=== PATIENT | male | born 1955 | race Hispanic/Latino ===

== ENCOUNTER 2023-11-21 11:04 | Emergency (ER) | payer OTHER ==
[~2023-11-21] VITALS: Ht 170.2 cm; Wt 93.0 kg
[~2023-11-21 11:04] MED LIST: DICL100G60 TP; DICY20TA3 PO; LOSA25TA41 PO
[2023-11-21 11:33] VITALS: BP 141/73; PULSE 91; RESP 20
[2023-11-21] MEDS ORDERED: CLIN-141 PO (11:37)
[2023-11-21] MEDS: CLINDAMYCIN 150 MG CAP PO ONE (11:53)
== END 2023-11-21 12:12 | disposition home or self-care (01) ==
LOC: EDH 11:04
DX: R21 Rash and other nonspecific skin eruption (principal); I10 Essential (primary) hypertension; Z79.899 Other long term (current) drug therapy

== ENCOUNTER 2024-12-17 20:44 | Inpatient (IN) | payer MEDICARE, OTHER ==
[~2024-12-17] VITALS: Ht 170.2 cm; Wt 85.7 kg
[~2024-12-17 20:44] MED LIST changes: +CLIN-141 PO
--- NOTE | 2024-12-17 21:11 | ERN ---
ED Note History of Present Illness Stated Complaint: HIGH BLOOD SUGAR Chief Complaint: Blood Sugar Problem Time Seen by MD: 20:46 Time Seen by Midlevel: 20:46 Dictation: The patient is a 69-year-old male with a history of colitis, diabetes currently noncompliant with medication, who presents to the emergency department after being sent over by his PCP for elevated blood sugar. Patient reports he went for labs today and they called him because his blood glucose was 824. Patient reports frequent urination and nausea. Reports he used to take metformin a year ago but stopped taking it and is currently not on any diabetic treatment. Denies any fevers, vomiting or diarrhea. Allergies: Coded Allergies: No Known Allergies (Unverified Allergy, Unknown, 03/07/23) Home Meds Active Scripts Clindamycin HCl (Clindamycin HCl) 300 Mg Capsule, 300 MG PO QID for 10 Days, #40 CAP Prov:KIRA WILSON SUPERVISOR MAINTENANCE 11/21/23 Reported Medications Diclofenac Sodium (Diclofenac Sodium) 100 Gm Gel..gram., 3 GM TP DAILY 03/08/23 Dicyclomine HCl (Dicyclomine HCl) 20 Mg Tablet, 20 MG PO [id number] PRN for ABDOMINAL PAIN, TAB 03/08/23 Losartan Potassium (Losartan Potassium) 25 Mg Tablet, 1 TAB PO DAILY 03/08/23 Past Medical History Past Medical History: No Pertinent History Additional Past Medical Hx: COLITIS Surgical History: None Surgical History Other: LEFT KNEE SX Family History: Negative Social History: Lives with family RN Note Reviewed/Agreed w/PFSH: Yes Review of System Dictation Constitutional: Negative for fever,chills, and weight loss Eyes: Negative for injury, pain,redness, and discharge ENT: Negative for injury,pain or swelling Cardiovascular: Negative for chest pain, palpitations, and edema Respiratory: Negative for shortness of breath, cough, and wheezing, Abdomen/GI: Negative for abdominal pain, vomiting, diarrhea, and constipation positive for nausea Back: Negative for injury and pain : Negative for injury, bleeding and discharge positive for frequent urination MS/Extremity: Negative for injury and deformity Skin: Negative for rash, and discoloration Neuro: Negative for headache, numbness, tingling, and seizure positive for weakness Psych: Negative for suicide ideation, homicidal ideation, and hallucinations Initial Vital Sign VS Vital Signs Date Time Temp Pulse Resp B/P (MAP) Pulse Ox O2 Delivery O2 Flow Rate FiO2 12/17/24 20:45 99.0 97 19 141/74 99 Room Air 0 Physical Exam Dictation Vital Signs reviewed General Appearance: Alert, oriented x 3, no acute distress, well developed, nourished. Head and Face: non-traumatic. Eyes: PERRL, pink conjunctivas, eyelid no trauma, anterior chamber with arcus senilis. Ears: Pinnas intact and no signs of trauma or erythema ear canals clear and no discharge TM no erythema Nose: No discharge, no bleeding. Oropharynx: Mouth normal, tongue pink. pharynx clear,no erythema, tonsils no exudates, no abscesses noted, mucous membrane moist Neck: Supple, non-tender, no thyromegaly, no masses, no JVD, no bruits Breast:Deferred Chest:No tenderness, no crepitus, no paradoxical movement, no retractions Lungs:Clear, well-ventilated, symmetric, no rales, no wheezing, no rhonchi, no stridor, good breath sounds bilaterally Heart: Regular rate, regular rhythm, no murmur, no gallops Vascular: no peripheral edema, Abdomen: Soft, positive bowel sounds, nondistended, no guarding, nontender, no rebound, no masses no hepatomegaly, no splenomegaly, no Peters's sign, no hernias. Rectal: Deferred Genital: Deferred Neurological: Normal speech, motor function intact, sensory function intact Musculoskeletal: Neck nontender, full range of motion, back nontender, full range of motion, Extremities: nontender, full range of motion Skin: Color pink, dry, no turgor, no rash, no lacerations, no abrasions, no contusions. Lymphatic: Deferred Results (Laboratory/Radiology) Laboratory/Radiology Laboratory Tests Test 12/17/24 20:47 12/17/24 21:27 12/17/24 21:31 Whole Blood Glucose > 600 MG/DL (70-110) *H Bedside Glucose Comment Notified Nurse Blood Gas Specimen Type Arterial Arterial Blood pH 7.442 (7.350-7.450) Arterial Blood Partial Pressure CO2 35 mmHg (35-48) Arterial Blood Partial Pressure O2 75.3 mmHg (83.0-108.0) L Arterial Blood HCO3 23.3 mmol/L (21.0-28.0) Arterial Blood Oxygen Saturation 95.7 % (94.0-98.0) Arterial Blood Base Excess -0.2 mmol/L (-2.0-3.0) Blood Gas Temperature 37.0 CELSIUS (35.5-37.0) Blood Gas Vent Mode RA (ROOM AIR) FiO2 21.0 % Blood Gas Specimen Comment RR RN White Blood Count 11.6 K/uL (4.8-10.8) H Red Blood Count 4.84 MIL/uL (4.50-6.20) Hemoglobin 14.6 g/dL (14.0-18.0) Hematocrit 42.7 % (42-54) Mean Corpuscular Volume 88.2 fL (79-99) Mean Corpuscular Hemoglobin 30.2 pg (27.0-33.0) Mean Corpuscular Hemoglobin Concent 34.2 g/dL (32.0-36.0) Red Cell Distribution Width 13.5 % (11.0-15.5) Platelet Count 304 K/uL (130-400) Mean Platelet Volume 11.0 fL (7.5-10.5) H Immature Granulocyte % (Auto) 0.6 % (0-1) Neutrophils (%) (Auto) 74.3 % (40.0-77.0) Lymphocytes (%) (Auto) 13.3 % (21.0-51.0) L Monocytes (%) (Auto) 10.8 % (3.0-13.0) Eosinophils (%) (Auto) 0.7 % (0.0-8.0) Basophils (%) (Auto) 0.3 % (0.0-5.0) Neutrophils # (Auto) 8.6 K/uL (1.8-7.7) H Lymphocytes # (Auto) 1.5 K/uL (1.0-4.8) Monocytes # (Auto) 1.3 K/uL (0.1-1.0) H Eosinophils # (Auto) 0.08 K/uL (0.00-0.70) Basophils # (Auto) 0.04 K/uL (0.00-0.20) Absolute Immature Granulocyte (auto 0.07 K/uL (0-1) Nucleated Red Blood Cells 0.0 % (0.0-0.19) Sodium Level 126 mmol/L (136-145) L Potassium Level 4.1 mmol/L (3.5-5.1) Chloride Level 90 mmol/L (101-111) *L Carbon Dioxide Level 25 mmol/L (21-32) Blood Urea Nitrogen 24 mg/dL (7-18) H Creatinine 1.3 mg/dL (0.5-1.3) Glomerular Filtration Rate Calc 60 mL/min (>90) Random Glucose 729 mg/dL (70-105) *H Whole Blood Ketones Quantitative 0.4 mmol/L (0.0-0.6) Total Calcium 9.4 mg/dL (8.5-10.1) Total Creatine Kinase 38 U/L (21-232) Troponin I High Sensitivity 7 ng/L (4-75) Labs Reviewed?: Yes EKG: (+) rhythm (Sinus rhythm) EKG Comment: Date:12/17/2024 Time:2107 Ventricular rate:91 NV interval:153 QRS duration:91 QT/QTc:357 EKG interpretation: Sinus rhythm Reviewed by ED Attending no STEMI ED Course ED Course Orders Procedure Category Date Status Time Cbc With Differential LAB 12/17/24 Complete 20:59 Chest 1vw RAD 12/17/24 Taken 20:59 12 Lead Ekg Tracing- EKG 12/17/24 Complete Technical 20:59 0.9%Nacl 1000ml (Ns PHA 12/17/24 Complete 1000ml) 21:00 Ondansetron 4mg Inj PHA 12/17/24 Complete (Zofran 4mg Inj) 21:00 Creatine Kinase, Total LAB 12/17/24 Complete 20:59 Troponin I High LAB 12/17/24 Complete Sensitivity 20:59 Urinalysis Profile LAB 12/17/24 In Process 20:59 Basic Metabolic Panel LAB 12/17/24 Complete 20:59 Ketone Blood LAB 12/17/24 Complete Quantitative 20:59 Arterial Blood Gas RT 12/17/24 Transmitted 20:59 Arterial Blood Gas LAB 12/17/24 Complete 21:27 Insulin Regular, PHA 12/17/24 In Process Human 3ml (Humulin R 23:00 Current Medications Medications (Trade) Dose Ordered Sig/Krystal Route PRN Reason Start Time Stop Time Status Last Admin Dose Admin Insulin Human Regular (humuLIN R 100 UNIT/ML 3ML) 8 unit ONCE ONCE IV 12/17/24 23:00 12/17/24 23:01 Ondansetron HCl (zoFRAN 4MG INJ) 4 mg ONCE ONCE IVP 12/17/24 21:00 12/17/24 21:04 DC 12/17/24 21:24 Sodium Chloride 1,000 ml @ 0 mls/hr ONCE ONCE IV 12/17/24 21:00 12/17/24 21:04 DC 12/17/24 21:24 Vital Signs Date Time Temp Pulse Resp B/P (MAP) Pulse Ox O2 Delivery O2 Flow Rate FiO2 12/17/24 20:45 99.0 97 19 141/74 99 Room Air 0 Medical Decision Making MDM MDM: The patient is a 69-year-old male with a history of colitis, diabetes currently noncompliant with medication, who presents to the emergency department after being sent over by his PCP for elevated blood sugar. Patient reports he went for labs today and they called him because his blood glucose was 824. Patient reports frequent urination and nausea. Reports he used to take metformin a year ago but stopped taking it and is currently not on any diabetic treatment. Denies any fevers, vomiting or diarrhea. CBC showed mild leukocytosis, no anemia, chemistry showed glucose of 729, a gap of 11, no DKA, hyponatremia, hypochloremia, negative troponin. Patient reports history of diabetes a year ago but is noncompliant with medication. You will admit patient to the hospital for further management and evaluation. Differential diagnosis: Dehydration, uncontrolled diabetes, DKA, hyperosmolar hyperglycemia Comorbidities: Diabetes, colitis Tests considered and not ordered secondary to shared decision making include: none Previous outside records reviewed: none Risk of complication and/or morbidity or mortality of patient management: The patient meets criteria for admission. Need for emergency major/minor surgery: No There are no social concerns with this patient. I independently interpreted the tests I ordered (labs, urinalysis, etc.). I discussed the case with the hospitalist for admission. Aury who accepts admission I discussed the case with the following specialists: none. Historian: pateint. I independently interpreted imaging studies and EKGs that I ordered (US, CT, XR, EKG, etc.). External chart review: none. Medical management and examination interpretation discussions were had by me wit h other qualified healthcare professionals as indicated for the patient's care. DX & DISP Disposition: Inpatient Decision to Admit Date: Dec 17, 2024 Decision to Admit Time: 22:49 Departure Impression: Primary Impression: Uncontrolled diabetes mellitus with hyperglycemia Additional Impressions: Hypochloremia, Hyponatremia Condition: Stable Referrals: WAYNE MONROY MD (PCP) I have reviewed the case, and I agree with, Diagnosis and Plan ADRY GE [facility] Dec 17, 2024 21:11
--- NOTE | 2024-12-17 21:12 | EKG ---
[facility] Test Date: 2024-12-17 Test Time: 21:08:54 Pat Name: SOLANGE CHAKRABORTY Department: ED Room: 219 Gender: M Supervisor [facility]: [id number] : [id number] Requested By: ADRY GE Order Number: [id number] Reading MD: Heber Benavides Measurements Intervals [place] Rate: 91 P: 53 PA: 153 QRS: -30 QRSD: 91 T: 23 QT: 357 QTc: 441 Interpretive Statements Sinus rhythm Left axis deviation Compared to ECG 03/07/2023 23:00:59 Left-axis deviation now present Atrial premature complex(es) no longer present Electronically Signed On 12-18-2024 11:52:32 CDT by Heber Benavides Please click the below link to view image of tracing.
[2024-12-17] MEDS: 0.9%NACL 1000ML 1,000 ML IV ONE (21:24)
[2024-12-17] MEDS: ondanSETRON 4MG INJ IVP ONE (21:24)
[2024-12-17 21:28] LABS: ABG BASE EXCESS -0.2 mmol/L (-2.0-3.0); ABG HCO3 23.3 mmol/L (21.0-28.0); ABG OXYGEN SATURATION 95.7 % (94.0-98.0); ABG PCO2 35 mmHg (35-48); ABG PH 7.442 (7.350-7.450); DEVICE COMMENT RR RN; PO2, ARTERIAL BG 75.3 mmHg (83.0-108.0); VENT MODE, BG RA (ROOM AIR)
[2024-12-17 21:54] LABS: BASOPHILS # (AUTO) 0.04 K/uL (0.00-0.20); BASOPHILS % (AUTO) 0.3 % (0.0-5.0); EOSINOPHILS # (AUTO) 0.08 K/uL (0.00-0.70); EOSINOPHILS % (AUTO) 0.7 % (0.0-8.0); HEMATOCRIT 42.7 % (42-54); IMMATURE GRANULOCYTE ABSOLUTE 0.07 K/uL (0-1); LYMPHOCYTES # (AUTO) 1.5 K/uL (1.0-4.8); LYMPHOCYTES % (AUTO) 13.3 % (21.0-51.0); MEAN CORPUSCULAR HEMOGLOBIN 30.2 pg (27.0-33.0); MEAN CORPUSCULAR HGB CONC 34.2 g/dL (32.0-36.0); MEAN CORPUSCULAR VOLUME 88.2 fL (79-99); MONOCYTES # (AUTO) 1.3 K/uL (0.1-1.0); MONOCYTES % (AUTO) 10.8 % (3.0-13.0); NEUTROPHILS # (AUTO) 8.6 K/uL (1.8-7.7); NEUTROPHILS % (AUTO) 74.3 % (40.0-77.0); PLATELET COUNT (AUTO) 304 K/uL (130-400); RED BLOOD CELL COUNT(AUTO) 4.84 MIL/uL (4.50-6.20); RED CELL DISTRIBUTION WIDTH 13.5 % (11.0-15.5); WHITE BLOOD COUNT (AUTO) 11.6 K/uL (4.8-10.8)
[2024-12-17 22:21] LABS: CREATININE 1.3 mg/dL (0.5-1.3); POTASSIUM 4.1 mmol/L (3.5-5.1)
[2024-12-17 22:48] LABS: APPEARANCE,URINE CLEAR (CLEAR); BILIRUBIN,URINE NEGATIVE (NEGATIVE); COLOR,URINE COLORLESS (YELLOW); GLUCOSE, URINE (UA) >=1000 mg/dL (NEGATIVE); KETONES,URINE NEGATIVE (NEGATIVE); LEUKOCYTE ESTERASE ,URINE NEGATIVE Leu/uL (NEGATIVE); NITRATE,URINE NEGATIVE (NEGATIVE); OCCULT BLOOD,URINE NEGATIVE (NEGATIVE); PROTEIN,URINE NEGATIVE (NEGATIVE); UROBILINOGEN,URINE 0.2 mg/dL (0.2-1.0)
--- NOTE | 2024-12-17 22:50 | HP ---
[facility] Date of Service: Dec 17, 2024 Time of Service: 22:49 PCP: Alba Carvajal HISTORY OF PRESENT ILLNESS: This is a 69-year-old male with past medical history of hypertension, Medical noncompliance , Crohn's disease, ulcerative colitis, obesity, diabetes and bullous rash who presents to the ED for complaints of elevated blood sugar.Patient states he went to his PCP today and lab work was done and in the afternoon the clinic had been calling him for the result but his phone was on silence so a blueprint maker went to check on him and instructed him that his blood sugar is high and that the doctor wants him to go the ER,thus prompted this admission.Patient reports the only symptoms he felt is that he is weak,has dry mouth ,nauseated and has increased urinary frequency.Patient reports he has been taking Metformin 500mg po daily last dose taken was prior to ER arrival but per ER report he stopped taking his Metformin for a year now.Patient reports he is taking prednisone 20mg po daily for his ulcerative colitis and bullous rash. Seen and examined patient awake,alert and coherent.Patient denies chest pain,palpitation,cough ,vomiting,abdominal painand shortness of breath. Latest vital signs temperature 99, pulse 97, blood pressure 141/74 saturation 99% on room air. Labs: WBC 11, hemoglobin 14, hematocrit 42, platelet count 304. Sodium 126, chloride 90, CO2 25, BUN 24 creatinine 1.3, GFR 60 random glucose 729, ketones 0.4 troponin seven. ABG pH 7.4, CO2 35, PO2 75 bicarb 23 O2 saturation 95%. Urinalysis significant for glucosuria. Chest x-ray result is still pending at this time. ECG result revealed sinus rhythm heart rate 91 left axis deviation. While in the ER patient received insulin 8 units IV, Zofran 4 mg IV and one L NS bolus. We will admit patient to ICU for further medical management. REVIEW OF SYSTEMS CONSTITUTIONAL: Denies fevers, chills, or night sweats. No unintentional weight loss reported. NEUROLOGICAL: Complains of generalized body weakness Denies headache, amaurosis fugax, sensory deficit, vertigo/spinning sensation, gait abnormalitie s, or tremors. ENT: No hearing loss, otalgia, otorrhea, rhinitis, rhinorrhea, hoarseness, or sore throat. CARDIOVASCULAR: Denies any exertional angina, dyspnea on exertion, orthopnea, paroxysmal nocturnal dyspnea, palpitations, life-threatening arrhythmias, claudication. PULMONARY: Denies any shortness of breath, cough, phlegm/sputum, hemoptysis, pleuritic chest pain. SLEEP: Denies morning headaches, daytime somnolence or napping. Denies difficulty falling asleep, staying asleep, waking from sleep. Denies knowledge of snoring. GASTROINTESTINAL: Complaints of dry mouth and nausea Denies any type of dysphagia to either liquids or solids. Denies vomiting, pyrosis, early satiety, abdominal pain, diarrhea, constipation, or changes in stool consistency or caliber. Denies coffee-ground emesis, hematemesis, hematochezia, or melanotic stools. GENITOURINARY: Increased urine frequency Deniesurgency, nocturia, hematuria or incontinence (Storage/Irritative symptoms.) Low urinary stream, straining to void, urinary intermittency or hesitancy, splitting of the voiding stream, terminal dribbling. ENDOCRINOLOGIC: Denies polyuria, polydipsia, polyphagia or heat/cold intolerances. HEMATOLOGIC: Denies thrombophilia/previous clots, or coagulopathy/bleeding disorders. ONCOLOGIC: Denies personal history of malignancy. DERMATOLOGIC: +Bullous rash PSYCHIATRIC: Denies any suicidal or homicidal ideation. Denies hallucinations. PAST MEDICAL HISTORY: [ Medical noncompliance Crohn's, ulcerative colitis, obesity, diabetes , hypertension and bullous rash ] PAST SURGICAL HISTORY: [ Colonoscopy and left knee surgery x2] PAST SOCIAL HISTORY: [ Patient lives with . Patient denies alcohol tobacco and recreational drug use ] FAMILY HISTORY: [ Hypertension and cardiovascular disease ] Coded Allergies: No Known Allergies (Unverified Allergy, Unknown, 03/07/23) PHYSICAL EXAM GENERAL APPEARANCE: The patient is awake, alert, and oriented, in no acute cardiopulmonary distress. NEUROLOGICAL: Cranial nerves II-XII grossly intact. Motor is 5/5 in bilateral upper and lower extremities proximal to distal. No sensory deficits. HEENT: Face is symmetric. Pupils are equal and reactive. Extraocular movements are intact. NECK: Supple. No JVD. No thyromegaly. No submental, submandibular, pre- /postauricular, occipital or supraclavicular lymphadenopathy. CHEST: Normal chest expansion. No Telemetry. LUNGS: Absence of any rales, rhonchi or any wheezing. CARDIOVASCULAR: Regular. S1 and S2 normal. No appreciable rubs, murmurs or gallops. ABDOMEN: Soft, nontender, and nondistended. There is no rebound, voluntary guarding, or rigidity. : Deferred. No Krishnamurthy. EXTREMITIES: Non-edematous and not cyanotic. No clubbing. Good capillary refill. SKIN: generalized body rash Vital Sign (Last 24 Hours) 12/17/24 20:45 Temp 99.0 Pulse 97 Resp 19 B/P (MAP) 141/74 Pulse Ox 99 O2 Delivery Room Air O2 Flow Rate 0 LABS: Laboratory: Test 12/17/24 21:31 12/17/24 21:27 12/17/24 20:47 Range/Units White Blood Count 11.6 H 4.8-10.8 K/uL Red Blood Count 4.84 4.50-6.20 MIL/uL Hemoglobin 14.6 14.0-18.0 g/dL Hematocrit 42.7 42-54 % Mean Corpuscular Volume 88.2 79-99 fL Mean Corpuscular Hemoglobin 30.2 27.0-33.0 pg Mean Corpuscular Hemoglobin Concent 34.2 32.0-36.0 g/dL Red Cell Distribution Width 13.5 11.0-15.5 % Platelet Count 304 130-400 K/uL Mean Platelet Volume 11.0 H 7.5-10.5 fL Immature Granulocyte % (Auto) 0.6 0-1 % Neutrophils (%) (Auto) 74.3 40.0-77.0 % Lymphocytes (%) (Auto) 13.3 L 21.0-51.0 % Monocytes (%) (Auto) 10.8 3.0-13.0 % Eosinophils (%) (Auto) 0.7 0.0-8.0 % Basophils (%) (Auto) 0.3 0.0-5.0 % Neutrophils # (Auto) 8.6 H 1.8-7.7 K/uL Lymphocytes # (Auto) 1.5 1.0-4.8 K/uL Monocytes # (Auto) 1.3 H 0.1-1.0 K/uL Eosinophils # (Auto) 0.08 0.00-0.70 K/uL Basophils # (Auto) 0.04 0.00-0.20 K/uL Absolute Immature Granulocyte (auto 0.07 0-1 K/uL Nucleated Red Blood Cells 0.0 0.0-0.19 % Sodium Level 126 L 136-145 mmol/L Potassium Level 4.1 3.5-5.1 mmol/L Chloride Level 90 *L 101-111 mmol/L Carbon Dioxide Level 25 21-32 mmol/L Blood Urea Nitrogen 24 H 7-18 mg/dL Creatinine 1.3 0.5-1.3 mg/dL Glomerular Filtration Rate Calc 60 >90 mL/min Random Glucose 729 *H 70-105 mg/dL Whole Blood Ketones Quantitative 0.4 0.0-0.6 mmol/L Total Calcium 9.4 8.5-10.1 mg/dL Total Creatine Kinase 38 21-232 U/L Troponin I High Sensitivity 7 4-75 ng/L Blood Gas Specimen Type Arterial Arterial Blood pH 7.442 7.350-7.450 Arterial Blood Partial Pressure CO2 35 35-48 mmHg Arterial Blood Partial Pressure O2 75.3 L 83.0-108.0 mmHg Arterial Blood HCO3 23.3 21.0-28.0 mmol/L Arterial Blood Oxygen Saturation 95.7 94.0-98.0 % Arterial Blood Base Excess -0.2 -2.0-3.0 mmol/L Blood Gas Temperature 37.0 35.5-37.0 CELSIUS Blood Gas Vent Mode RA ROOM AIR FiO2 21.0 % Blood Gas Specimen Comment RR RN Whole Blood Glucose > 600 *H 70-110 MG/DL Bedside Glucose Comment Notified Nurse DIAGNOSTICS / RADIOLOGY: [ ] ASSESSMENT: Hyperosmolar hyperglycemic state POA Uncontrolled diabetes POA Medical noncompliance POA Pseudohyponatremia due to hyperglycemia POA Possible dehydration POA Hypertension POA Ulcerative colitis POA Bullous rash POA POA PLAN: We will admit patient in ICU We will start on clear liquid diet Start on insulin drip, IV fluids and electrolyte replacement using DKA protocol We will start on Famotidine 20 mg IV bid for GI prophylaxis We will start on insulin sliding scale AC & HS with hypoglycemia protocol We will add prn medication for fever,pain,nausea, vomiting and constipation We will reconcile home meds once medlist available We will seek critical care consultation We will seek endocrinology consultation Counseled on strict compliance with medication We will request labs in am Further orders to follow depending on above results Case discussed with attending physician and came up with above treatment and plan of care. ADVANCED CARE PLANNING 1. Which of the following were discussed? Hospice Care - No Therapeutic options - Yes Advance Directives - No Other discussions - 2. Discussed with who? Patient and Alina 3. Voluntary nature of this service was explained to the patient? Yes 4. Amount of time spent - ___26____ 5. Reviewed by Physician? (if this service was performed by NPP) Yes Patient seen and examined by me. Agree with note by REHAB THERAPY MANAGER SEE ADDITIONAL ORDERS PER CHART DISCUSSED WITH NURSING STAFF LADONNA ALFRED BEVEL POLISHER Dec 17, 2024 22:50
[2024-12-17 22:52] LABS: ADD UA MICROSCOPIC YES
[2024-12-17] MEDS: INSULIN humuLIN R 100 UNIT/ML 3ML IV ONE (22:53)
[2024-12-17 22:54] LABS: BACTERIA,URINE RARE /HPF (None Seen); SQUAMOUS EPITHELIAL CELL,UR RARE /HPF (0-2); WBC,URINE 0-1 /HPF (0-1)
[2024-12-17] MEDS ORDERED: PoTASSium chl 10% ELIXIR 20MEQ 20 MEQ/15 ML UDCUP PO PRN (23:30)
[2024-12-17] MEDS ORDERED: ondanSETRON 4MG INJ IV PRN (23:30)
[2024-12-17] MEDS ORDERED: MAGNESIUM 2GM PREMIX 50ML 50 ML IV SCH (23:30)
[2024-12-17] MEDS ORDERED: DEXTROSE 5 %-0.45 % NACL 1,000 ML IV SCH (23:30)
[2024-12-17] MEDS ORDERED: 0.9%NACL 1000ML 1,000 ML IV SCH (23:30)
[2024-12-17] MEDS ORDERED: MANNITOL 20% 250ML IV.SOLN IV SCH (23:30)
[2024-12-17] MEDS ORDERED: PoTASSium chloRIDE 20MEQ/100ML 100 ML IV PRN (23:30)
[2024-12-17] MEDS ORDERED: acetaMINOPHEN 325 MG TAB PO PRN ×2 (23:30)
[2024-12-17] MEDS: INSULIN REGULAR, HUMAN 3ML 100 UNIT in 0.9%NACL 100ML 100 ML IV SCH (23:43)
[2024-12-17] MEDS: D5W-1/2 NS/20MEQ KCL 1,000 ML IV SCH (23:46)
[2024-12-18] VITALS (22 sets, daily range): BP systolic 105–131; BP diastolic 45–75; PULSE 67–83; RESP 10–18; TEMP 97.9–98.5; O2SAT 97–100
[2024-12-18] MEDS: PoTASSium chloRIDE 20MEQ/10ML 20 MEQ in 0.9%NACL 1000ML 1,000 ML IV SCH (00:11)
[2024-12-18 01:14] LABS: CREATININE 1.1 mg/dL (0.5-1.3); POTASSIUM 3.3 mmol/L (3.5-5.1)
--- NOTE | 2024-12-18 01:46 | CONS ---
[facility] CONSULTATION NOTE Date Patient Seen: Dec 18, 2024 Time of Visit: 01:36 Supervising Physician: DR. RAMSES KEE Reason for Consultation: CRITICAL CARE CONSULT Primary Care Physician: Dr.Minor Salguero Outpatient Specialists: [ ] Inpatient Consults: [ ] PROBLEM LIST: 1. Hyperosmolar hyperglycemic state, POA 2. Diabetes type 2 uncontrolled, POA 3. Noncompliance with diabetes treatment, POA 4. Morbid obesity, POA 5. 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 Patient reports that for the past two days, he is becoming increasingly weak, was seen by his PCP yesterday and went through some blood work. Patient received a call from his PCP office instructed him to go to the emergency department for further evaluation and treatment due to elevated blood glucose. Patient denies fever, chills, nausea, vomiting, diarrhea, cough, chest pain, dizziness, or any other symptoms. The workup in the emergency department shows a sodium of 126, chloride of 90, creatinine 1.3, GFR of 60, glucose of 729, ketone of 0.4. In the emergency department, patient received NS 1 L bolus, insulin 8 units IV. Patient was started on insulin drip with IV fluid. Critical care an franchise consultant have been consulted. Patient will be admitted to ICU for further evaluation and treatment. PAST MEDICAL HX: see above PAST SURGICAL HX: noncontributory SOCIAL HISTORY: No tobacco, ETOH, or illicit drug use Coded Allergies: No Known Allergies (Unverified Allergy, Unknown, 03/07/23) REVIEW OF SYSTEMS: 12 point ROS reviewed with patient. Pertinent positives mentioned above. Otherwise negative. PHYSICAL EXAM: GENERAL: alert, weak, awake oriented x 3 HEENT: EOMI, Sclera non icteric, moist mucosa NECK: Supple, no JVD, trachea midline LUNGS: Clear breath sounds bilaterally. No wheezes HEART: Regular rate and rhythm. Normal S1 and S2, without murmurs ABD: Abdomen soft, nontender. Bowel sounds present EXT: No clubbing cyanosis or edema NEURO: Alert and oriented to person, follows commands Vital Signs (last 8hr) Date Time Temp Pulse Resp B/P (MAP) Pulse Ox O2 Delivery O2 Flow Rate FiO2 12/17/24 20:45 99.0 97 19 141/74 99 Room Air 0 LABS: Hematology Labs: Test 12/17/24 21:31 Range/Units White Blood Count 11.6 H 4.8-10.8 K/uL Red Blood Count 4.84 4.50-6.20 MIL/uL Hemoglobin 14.6 14.0-18.0 g/dL Hematocrit 42.7 42-54 % Mean Corpuscular Volume 88.2 79-99 fL Mean Corpuscular Hemoglobin 30.2 27.0-33.0 pg Mean Corpuscular Hemoglobin Concent 34.2 32.0-36.0 g/dL Red Cell Distribution Width 13.5 11.0-15.5 % Platelet Count 304 130-400 K/uL Mean Platelet Volume 11.0 H 7.5-10.5 fL Immature Granulocyte % (Auto) 0.6 0-1 % Neutrophils (%) (Auto) 74.3 40.0-77.0 % Lymphocytes (%) (Auto) 13.3 L 21.0-51.0 % Monocytes (%) (Auto) 10.8 3.0-13.0 % Eosinophils (%) (Auto) 0.7 0.0-8.0 % Basophils (%) (Auto) 0.3 0.0-5.0 % Neutrophils # (Auto) 8.6 H 1.8-7.7 K/uL Lymphocytes # (Auto) 1.5 1.0-4.8 K/uL Monocytes # (Auto) 1.3 H 0.1-1.0 K/uL Eosinophils # (Auto) 0.08 0.00-0.70 K/uL Basophils # (Auto) 0.04 0.00-0.20 K/uL Absolute Immature Granulocyte (auto 0.07 0-1 K/uL Nucleated Red Blood Cells 0.0 0.0-0.19 % Chemistry Labs: Test 12/18/24 01:34 12/18/24 00:52 12/17/24 21:31 12/17/24 20:47 Range/Units Whole Blood Glucose 216 H 70-110 MG/DL Sodium Level 135 L 136-145 mmol/L Potassium Level 3.3 L 3.5-5.1 mmol/L Chloride Level 98 L 101-111 mmol/L Carbon Dioxide Level 28 21-32 mmol/L Blood Urea Nitrogen 20 H 7-18 mg/dL Creatinine 1.1 0.5-1.3 mg/dL Glomerular Filtration Rate Calc 73 >90 mL/min Random Glucose 364 #H 70-105 mg/dL Total Calcium 8.7 8.5-10.1 mg/dL Magnesium Level 2.00 1.80-2.40 mg/dL Whole Blood Ketones Quantitative 0.4 0.0-0.6 mmol/L Total Creatine Kinase 38 21-232 U/L Troponin I High Sensitivity 7 4-75 ng/L Bedside Glucose Comment Notified Nurse DIAGNOSTICS / RADIOLOGY RESULTS: [ ] PLAN NEURO: Minimize central acting medications as possible. Fall Precautions. Well lighted room through the day and minimize interruptions through the night to prevent acute delirium. PULMONARY: Supplemental 02 as needed Titrate Fio2 to keep Spo2 > or = 90% DuoNebs and CPT as needed IS hourly while awake for pulmonary hygiene Out of bed to chair as tolerated VAP Bundle Vent/BIPAP Settings: [ ] Driving pressure: [ ] P Plat: [ ] Static C: [ ] Static R: [ ] P/F Ratio: [ ] CARDIOVASCULAR: Follow hemodynamics. Titrate vasopressor to keep MAP >65 or systolic blood pressure >95mmHg DIPS: [ ] LINES: [ ] GI & NUTRITION: Continue nutritional support Aspirations precautions Prokinetic agents and laxatives as needed KIDNEYS & ELECTROLYTES: Strict monitoring of intake and output Daily weights Avoid nephrotoxic agents Monitor electrolytes and replace as needed Goal urine output of 30mL/hr or 0.5mL/kg/hr Urine output: [ ] Fluid Balance: [ ] ENDOCRINE: Maintain blood glucose between 100-180 at all times. Insulin sliding scale for blood glucose management Continue insulin drip Continue current IV fluid Obtain hemoglobin A1c INFECTIOUS DISEASE: Trend temperature. Louis-culture if febrile. Micro: [ ] Antibiotics: [ ] HEMATOLOGY & COAGULATION: Monitor H&H. Keep Hgb > 7 Transfuse 1 unit of PRBC for Hgb < 7 Transfuse 1 pack of platelets of platelets < 20, 000 Watch for any signs and symptoms of bleeding SKIN: Pressure ulcer prevention per facility protocol Rehab: PT/OT Prophylaxis: GI: Famotidine for GI prophylaxis DVT: SCDs Code Status: Full Resuscitation Disposition: Admit in ICU Other: Total patient care time exceeds 35 minutes excluding all procedures. Case was discussed and seen with my supervising physician Dr.Jairo Kee. The above plan was formulated and agreed upon. JUVENTINO [facility] Dec 18, 2024 01:46
--- NOTE | 2024-12-18 02:20 | HMCIMG ---
EXAM: CR Chest, 1 view CLINICAL HISTORY: Weakness. COMPARISON: None provided. FINDINGS: Nodular opacities in the left mid to lower zones, measuring about 0.6 cm and 2.2 cm. The remaining lung burci[place] are clear. No pleural effusion or pneumothorax. The cardiomediastinal silhouette is within normal limits. No acute osseous abnormality. IMPRESSION: Nodular opacities in the left mid to lower zones, measuring about 0.6 cm and 2.2 cm. The remaining lung [place]ci[place] are clear. /[place]
[2024-12-18] MEDS: PoTASSium chloRIDE 20MEQ ER 20 MEQ ERTAB PO PRN (03:51)
--- NOTE | 2024-12-18 04:25 | NUR ---
Patient came up from ER and blood sugar was in the 50's. Gave patient apple juice and he has a clear liquid diet. Latest sugar 120's. Provider ordered d50 amp for hypoglycemia iv prn. Provider stated ok to utilize DKA paper protocol. Protocol is in the chart. As per provider restart paper dka protocol using algorithm one. Addendum: 12/18/24 at 9818 by ALLAN PHAN RN RN Received patient running insulin ar 2 units/hr iv. Turned off insulin when patient was found to be hypoglycemic. Restarted insulin at 0.5 units/hr as per protocol.
[2024-12-18] MEDS ORDERED: GLUCAGON 1MG KIT 1 MG ML IM PRN (05:00)
[2024-12-18] MEDS ORDERED: DEXTROSE 50%-WATER 50 ML DISP.SYRIN IV PRN (05:00)
[2024-12-18 05:47] LABS: BASOPHILS # (AUTO) 0.04 K/uL (0.00-0.20); BASOPHILS % (AUTO) 0.6 % (0.0-5.0); EOSINOPHILS # (AUTO) 0.13 K/uL (0.00-0.70); EOSINOPHILS % (AUTO) 1.9 % (0.0-8.0); HEMATOCRIT 37.6 % (42-54); IMMATURE GRANULOCYTE ABSOLUTE 0.04 K/uL (0-1); LYMPHOCYTES # (AUTO) 1.4 K/uL (1.0-4.8); LYMPHOCYTES % (AUTO) 21.4 % (21.0-51.0); MEAN CORPUSCULAR HEMOGLOBIN 30.3 pg (27.0-33.0); MEAN CORPUSCULAR HGB CONC 33.8 g/dL (32.0-36.0); MEAN CORPUSCULAR VOLUME 89.7 fL (79-99); MONOCYTES # (AUTO) 0.9 K/uL (0.1-1.0); MONOCYTES % (AUTO) 12.6 % (3.0-13.0); NEUTROPHILS # (AUTO) 4.2 K/uL (1.8-7.7); NEUTROPHILS % (AUTO) 62.9 % (40.0-77.0); PLATELET COUNT (AUTO) 253 K/uL (130-400); RED BLOOD CELL COUNT(AUTO) 4.19 MIL/uL (4.50-6.20); RED CELL DISTRIBUTION WIDTH 13.5 % (11.0-15.5); WHITE BLOOD COUNT (AUTO) 6.7 K/uL (4.8-10.8)
[2024-12-18 06:22] LABS: ALBUMIN 2.7 g/dL (3.5-5.0); BILIRUBIN,TOTAL 0.5 mg/dL (0.2-1.0); CREATININE 0.8 mg/dL (0.5-1.3); MAGNESIUM 1.9 mg/dL (1.80-2.40); POTASSIUM 3.3 mmol/L (3.5-5.1); THYROID STIMULATING HORMONE 0.84 uIU/mL (0.36-3.74); TOTAL PROTEIN, SERUM 5.9 g/dL (6.0-8.3)
[2024-12-18 06:34] LABS: HEMOGLOBIN A1C 10.5 % (4.0-6.0)
--- NOTE | 2024-12-18 07:51 | NUR ---
ACCIDENTLY DOCUMENTED UNDER ROSE ACCOUNT TOWARDS END OF SHIFT. ALL DOCUMENTATION UNDER ROSE FROM 1900 TO 699 IS JFOURLELO.
[2024-12-18] MEDS: FAMOTIDINE 20MG VIAL IV SCH (08:04)
[2024-12-18] MEDS: MAGNESIUM 2GM PREMIX 50ML 50 ML IV PRN (08:04)
[2024-12-18] MEDS ORDERED: PRED20TA3 PO (08:24)
[2024-12-18 11:32] LABS: CREATININE 0.8 mg/dL (0.5-1.3); POTASSIUM 3.5 mmol/L (3.5-5.1)
--- NOTE | 2024-12-18 13:26 | PN ---
[facility] PROGRESS NOTE Date Patient Seen: Dec 18, 2024 Time of Visit: 13:26 Supervising Physician: Dr. Moffett Primary Care Physician: Dr.Minor Salguero Outpatient Specialists: [ ] Inpatient Consults: [ ] PROBLEM LIST: 1. Hyperosmolar hyperglycemic state, POA 2. Diabetes type 2 uncontrolled, POA 3. Pseudohyponatremia, POA 4. Morbid obesity, POA 5. Crohn's disease/ulcerative colitis on chronic steroid INTERVAL HISTORY: 12/18/2024: At the time of my evaluation, the patient is lying in bed. He remains on room air with optimal oxygen saturation, vital signs are generally stable. Laboratory data today was unremarkable and blood glucose trends have significantly improved. No new chest imaging for review today. Currently, the patient remains on a insulin drip and is also on IV fluids with D5 NS and added K. No other complaint. REVIEW OF SYSTEMS: 12 point ROS reviewed with patient. Pertinent positives mentioned above. Otherwise negative. PHYSICAL EXAM: GENERAL: Alert, weak, awake oriented x 3 HEENT: EOMI, Sclera non icteric, moist mucosa NECK: Supple, no JVD, trachea midline LUNGS: Clear breath sounds bilaterally. No wheezes HEART: Regular rate and rhythm. Normal S1 and S2, without murmurs ABD: Abdomen soft, nontender. Bowel sounds present EXT: No clubbing cyanosis or edema NEURO: Alert and oriented to person, follows commands Vital Signs (last 8hr) Date Time Temp Pulse Resp B/P (MAP) Pulse Ox O2 Delivery O2 Flow Rate FiO2 12/18/24 08:00 98 Room Air* 0 21 12/18/24 08:00 76 14 128/69 (88) 100 12/18/24 08:00 97.9 12/18/24 07:30 97.9 74 14 100 12/18/24 06:42 79 18 120/54 (76) 100 12/18/24 05:42 78 15 131/74 (93) 92 LABS: Hematology Labs: Test 12/18/24 05:31 Range/Units White Blood Count 6.7 # 4.8-10.8 K/uL Red Blood Count 4.19 L 4.50-6.20 MIL/uL Hemoglobin 12.7 L 14.0-18.0 g/dL Hematocrit 37.6 L 42-54 % Mean Corpuscular Volume 89.7 79-99 fL Mean Corpuscular Hemoglobin 30.3 27.0-33.0 pg Mean Corpuscular Hemoglobin Concent 33.8 32.0-36.0 g/dL Red Cell Distribution Width 13.5 11.0-15.5 % Platelet Count 253 130-400 K/uL Mean Platelet Volume 10.5 7.5-10.5 fL Immature Granulocyte % (Auto) 0.6 0-1 % Neutrophils (%) (Auto) 62.9 40.0-77.0 % Lymphocytes (%) (Auto) 21.4 21.0-51.0 % Monocytes (%) (Auto) 12.6 3.0-13.0 % Eosinophils (%) (Auto) 1.9 0.0-8.0 % Basophils (%) (Auto) 0.6 0.0-5.0 % Neutrophils # (Auto) 4.2 1.8-7.7 K/uL Lymphocytes # (Auto) 1.4 1.0-4.8 K/uL Monocytes # (Auto) 0.9 0.1-1.0 K/uL Eosinophils # (Auto) 0.13 0.00-0.70 K/uL Basophils # (Auto) 0.04 0.00-0.20 K/uL Absolute Immature Granulocyte (auto 0.04 0-1 K/uL Nucleated Red Blood Cells 0.0 0.0-0.19 % Chemistry Labs: Test 12/18/24 12:19 12/18/24 11:17 12/18/24 05:31 12/17/24 21:31 Range/Units Whole Blood Glucose 155 H 70-110 MG/DL Sodium Level 136 136-145 mmol/L Potassium Level 3.5 3.5-5.1 mmol/L Chloride Level 103 101-111 mmol/L Carbon Dioxide Level 28 21-32 mmol/L Blood Urea Nitrogen 13 7-18 mg/dL Creatinine 0.8 0.5-1.3 mg/dL Glomerular Filtration Rate Calc 96 >90 mL/min Random Glucose 196 H 70-105 mg/dL Total Calcium 7.6 L 8.5-10.1 mg/dL Hemoglobin A1c 10.5 H 4.0-6.0 % Estimated Average Glucose (eAG) 255 H 70-126 mg/dL Magnesium Level 1.90 1.80-2.40 mg/dL Total Bilirubin 0.5 0.2-1.0 mg/dL Aspartate Amino Transf (AST/SGOT) 13 10-37 U/L Alanine Aminotransferase (ALT/SGPT) 16 12-78 U/L Alkaline Phosphatase 91 50-136 U/L Total Protein 5.9 L 6.0-8.3 g/dL Albumin 2.7 L 3.5-5.0 g/dL Triglycerides Level 129 30-200 mg/dL Cholesterol Level 144 <200 mg/dL LDL Cholesterol 76 0-99 mg/dL HDL Cholesterol 57 29-71 mg/dL Thyroid Stimulating Hormone (TSH) 0.84 0.36-3.74 uIU/mL Whole Blood Ketones Quantitative 0.4 0.0-0.6 mmol/L Total Creatine Kinase 38 21-232 U/L Troponin I High Sensitivity 7 4-75 ng/L Test 12/17/24 20:47 Range/Units Bedside Glucose Comment Notified Nurse DIAGNOSTICS / RADIOLOGY RESULTS: [ ] PLAN 12/18/2024: For now, we are going to continue current management for the patient. I am going to discontinue the insulin drip, start the patient on Lantus5 units q.12 as well as insulin sliding scale. The patient will remain on IV fluids only with NS. We will continue to follow the blood glucose trend. We will replace electrolyte deficit as necessary. I discussed the findings and plan for further management with the patient. We will monitor the patient's progress and response to management. We will continue to provide general supportive care, GI and DVT prophylaxis. Further orders per attending MD and hospital course. NEURO: Minimize central acting medications as possible. Maintain fall precautions, adequate lighting during the day PULMONARY: Supplemental 02 as needed. Maintain aspiration precautions at all times CARDIOVASCULAR: Follow hemodynamics. Vital signs per facility protocol GI & NUTRITION: Continue with nutritional support. Continue stool softeners and laxatives as needed. KIDNEYS & ELECTROLYTES: Strict monitoring of intake, output and overall fluid balance. Avoid nephrotoxic medications to the extent possible. Medications to be dosed according to renal function. Monitor electrolytes and replace as needed ENDOCRINE: Maintain blood glucose between 100-180 at all times. Hypoglycemia protocol in place INFECTIOUS DISEASE: Trend temperature, WBC and procalcitonin level Follow cultures, deescalate antibiotics as soon as possible. Panculture if new onset fever ONCOLOGY/HEMATOLOGY/COAGULATION: Monitor for s/s of bleeding Monitor hemoglobin, coagulation studies as needed SKIN: Pressure ulcer prevention per facility protocol Specialty mattress ORTHO/REHAB: Continue PT/OT Prophylaxis: Continue GI and DVT prophylaxis Code Status: Full Resuscitation Disposition: TBD Other: I personally spent 40 minutes of critical care time in treatment of this patient. This includes patient management, time at bedside, time reviewing tests, labs, appropriate images and studies, documentation, and patient care coordination. This time excludes separately billable procedures. Patient was seen and case discussed with roundmary BAIRD. Plan of care was discussed and agreed upon. AIYANA VASQUEZ MAJOR ASSEMBLY INSPECTOR Dec 18, 2024 13:26
--- NOTE | 2024-12-18 14:17 | PN ---
[facility] PROGRESS NOTE Date of Service: Dec 18, 2024 Time of Service: 14:03 SUBJECTIVE: This is a 69-year-old male with past medical history of hypertension, Medical noncompliance , Crohn's disease, ulcerative colitis, obesity, diabetes and bullous rash who presents to the ED for complaints of elevated blood sugar.Patient states he went to his PCP today and lab work was done and in the afternoon the clinic had been calling him for the result but his phone was on silence so a military science teacher went to check on him and instructed him that his blood sugar is high and that the doctor wants him to go the ER,thus prompted this admission.Patient reports the only symptoms he felt is that he is weak,has dry mouth ,nauseated and has increased urinary frequency.Patient reports he has been taking Metformin 500mg po daily last dose taken was prior to ER arrival but per ER report he stopped taking his Metformin for a year now.Patient reports he is taking prednisone 20mg po daily for his ulcerative colitis and bullous rash. Seen and examined patient awake,alert and coherent.Patient denies chest pain,palpitation,cough ,vomiting,abdominal painand shortness of breath. Latest vital signs temperature 99, pulse 97, blood pressure 141/74 saturation 99% on room air. Labs: WBC 11, hemoglobin 14, hematocrit 42, platelet count 304. Sodium 126, chloride 90, CO2 25, BUN 24 creatinine 1.3, GFR 60 random glucose 729, ketones 0.4 troponin seven. ABG pH 7.4, CO2 35, PO2 75 bicarb 23 O2 saturation 95%. Urinalysis significant for glucosuria. Chest x-ray result is still pending at this time. ECG result revealed sinus rhythm heart rate 91 left axis deviation. While in the ER patient received insulin 8 units IV, Zofran 4 mg IV and one L NS bolus. We will admit patient to ICU for further medical toni da silva. 12/18/2024 - patient seen at bedside in room 219. Patient is alert, awake and oriented to time place person. Patient is asymptomatic, hemodynamically stable. Serum glucose is 155 , hemoglobin 10.5 we will plan to discontinue the IV insulin and transition to subcutaneous, hypoglycemia protocol has been already placed. Patient's labs were monitored closely, sodium 136, potassium 3.5, chloride 103, bicarb 28 . Informed the patient about importance of being adherent to the medication. We will monitor the patient closely REVIEW OF SYSTEMS CONSTITUTIONAL: Denies fevers, chills, or night sweats. No unintentional weight loss reported. NEUROLOGICAL: Complains of generalized body weakness Denies headache, amaurosis fugax, sensory deficit, vertigo/spinning sensation, gait abnormalities, or tremors. ENT: No hearing loss, otalgia, otorrhea, rhinitis, rhinorrhea, hoarseness, or sore throat. CARDIOVASCULAR: Denies any exertional angina, dyspnea on exertion, orthopnea, paroxysmal nocturnal dyspnea, palpitations, life-threatening arrhythmias, claudication. PULMONARY: Denies any shortness of breath, cough, phlegm/sputum, hemoptysis, pleuritic chest pain. SLEEP: Denies morning headaches, daytime somnolence or napping. Denies difficulty falling asleep, staying asleep, waking from sleep. Denies knowledge of snoring. GASTROINTESTINAL: Complaints of dry mouth and nausea Denies any type of dysphagia to either liquids or solids. Denies vomiting, pyrosis, early satiety, abdominal pain, diarrhea, constipation, or changes in stool consistency or caliber. Denies coffee-ground emesis, hematemesis, hematochezia, or melanotic stools. GENITOURINARY: Increased urine frequency Deniesurgency, nocturia, hematuria or incontinence (Storage/Irritative symptoms.) Low urinary stream, straining to void, urinary intermittency or hesitancy, splitting of the voiding stream, terminal dribbling. ENDOCRINOLOGIC: Denies polyuria, polydipsia, polyphagia or heat/cold intolerances. HEMATOLOGIC: Denies thrombophilia/previous clots, or coagulopathy/bleeding disorders. ONCOLOGIC: Denies personal history of malignancy. DERMATOLOGIC: +Bullous rash PSYCHIATRIC: Denies any suicidal or homicidal ideation. Denies hallucinations. PHYSICAL EXAM GENERAL APPEARANCE: The patient is awake, alert, and oriented, in no acute cardiopulmonary distress. NEUROLOGICAL: Cranial nerves II-XII grossly intact. Motor is 5/5 in bilateral upper and lower extremities proximal to distal. No sensory deficits. HEENT: Face is symmetric. Pupils are equal and reactive. Extraocular movements are intact. NECK: Supple. No JVD. No thyromegaly. No submental, submandibular, pre- /postauricular, occipital or supraclavicular lymphadenopathy. CHEST: Normal chest expansion. No Telemetry. LUNGS: Absence of any rales, rhonchi or any wheezing. CARDIOVASCULAR: Regular. S1 and S2 normal. No appreciable rubs, murmurs or gallops. ABDOMEN: Soft, nontender, and nondistended. There is no rebound, voluntary guarding, or rigidity. : Deferred. No Krishnamurthy. EXTREMITIES: Non-edematous and not cyanotic. No clubbing. Good capillary refill. SKIN: generalized body rash Vital Signs (last 8hr) Date Time Temp Pulse Resp B/P (MAP) Pulse Ox O2 Delivery O2 Flow Rate FiO2 12/18/24 08:00 98 Room Air* 0 21 12/18/24 08:00 76 14 128/69 (88) 100 12/18/24 08:00 97.9 12/18/24 07:30 97.9 74 14 100 12/18/24 06:42 79 18 120/54 (76) 100 LABS: Laboratory: Test 12/18/24 12:19 12/18/24 11:17 12/18/24 05:31 12/17/24 22:00 Range/Units Whole Blood Glucose 155 H 70-110 MG/DL Sodium Level 136 136-145 mmol/L Potassium Level 3.5 3.5-5.1 mmol/L Chloride Level 103 101-111 mmol/L Carbon Dioxide Level 28 21-32 mmol/L Blood Urea Nitrogen 13 7-18 mg/dL Creatinine 0.8 0.5-1.3 mg/dL Glomerular Filtration Rate Calc 96 >90 mL/min Random Glucose 196 H 70-105 mg/dL Total Calcium 7.6 L 8.5-10.1 mg/dL Magnesium Level 2.10 1.80-2.40 mg/dL White Blood Count 6.7 # 4.8-10.8 K/uL Red Blood Count 4.19 L 4.50-6.20 MIL/uL Hemoglobin 12.7 L 14.0-18.0 g/dL Hematocrit 37.6 L 42-54 % Mean Corpuscular Volume 89.7 79-99 fL Mean Corpuscular Hemoglobin 30.3 27.0-33.0 pg Mean Corpuscular Hemoglobin Concent 33.8 32.0-36.0 g/dL Red Cell Distribution Width 13.5 11.0-15.5 % Platelet Count 253 130-400 K/uL Mean Platelet Volume 10.5 7.5-10.5 fL Immature Granulocyte % (Auto) 0.6 0-1 % Neutrophils (%) (Auto) 62.9 40.0-77.0 % Lymphocytes (%) (Auto) 21.4 21.0-51.0 % Monocytes (%) (Auto) 12.6 3.0-13.0 % Eosinophils (%) (Auto) 1.9 0.0-8.0 % Basophils (%) (Auto) 0.6 0.0-5.0 % Neutrophils # (Auto) 4.2 1.8-7.7 K/uL Lymphocytes # (Auto) 1.4 1.0-4.8 K/uL Monocytes # (Auto) 0.9 0.1-1.0 K/uL Eosinophils # (Auto) 0.13 0.00-0.70 K/uL Basophils # (Auto) 0.04 0.00-0.20 K/uL Absolute Immature Granulocyte (auto 0.04 0-1 K/uL Nucleated Red Blood Cells 0.0 0.0-0.19 % Hemoglobin A1c 10.5 H 4.0-6.0 % Estimated Average Glucose (eAG) 255 H 70-126 mg/dL Total Bilirubin 0.5 0.2-1.0 mg/dL Aspartate Amino Transf (AST/SGOT) 13 10-37 U/L Alanine Aminotransferase (ALT/SGPT) 16 12-78 U/L Alkaline Phosphatase 91 50-136 U/L Total Protein 5.9 L 6.0-8.3 g/dL Albumin 2.7 L 3.5-5.0 g/dL Triglycerides Level 129 30-200 mg/dL Cholesterol Level 144 <200 mg/dL LDL Cholesterol 76 0-99 mg/dL HDL Cholesterol 57 29-71 mg/dL Thyroid Stimulating Hormone (TSH) 0.84 0.36-3.74 uIU/mL Urine Color COLORLESS YELLOW Urine Appearance CLEAR CLEAR Urine pH 5.0 5.0-8.0 Urine Specific [place] 1.032 H 1.001-1.031 Urine Protein NEGATIVE NEGATIVE mg/dL Urine Glucose (UA) >=1000 H NEGATIVE mg/dL Urine Ketones NEGATIVE NEGATIVE mg/dL Urine Occult Blood NEGATIVE NEGATIVE Urine Nitrate NEGATIVE NEGATIVE Urine Bilirubin NEGATIVE NEGATIVE mg/dL Urine Urobilinogen 0.2 0.2-1.0 mg/dL Urine Leukocyte Esterase NEGATIVE NEGATIVE Karan/uL Urine RBC None 0-1 /HPF Urine WBC 0-1 0-1 /HPF Urine Squamous Epithelial Cells RARE 0-2 /HPF Urine Bacteria RARE None Seen /HPF Test 12/17/24 21:31 12/17/24 21:27 12/17/24 20:47 Range/Units Whole Blood Ketones Quantitative 0.4 0.0-0.6 mmol/L Total Creatine Kinase 38 21-232 U/L Troponin I High Sensitivity 7 4-75 ng/L Blood Gas Specimen Type Arterial Arterial Blood pH 7.442 7.350-7.450 Arterial Blood Partial Pressure CO2 35 35-48 mmHg Arterial Blood Partial Pressure O2 75.3 L 83.0-108.0 mmHg Arterial Blood HCO3 23.3 21.0-28.0 mmol/L Arterial Blood Oxygen Saturation 95.7 94.0-98.0 % Arterial Blood Base Excess -0.2 -2.0-3.0 mmol/L Blood Gas Temperature 37.0 35.5-37.0 CELSIUS Blood Gas Vent Mode RA ROOM AIR FiO2 21.0 % Blood Gas Specimen Comment RR RN Bedside Glucose Comment Notified Nurse Current Medications Medications (Trade) Dose Ordered Sig/Krystal Route PRN Reason Start Time Stop Time Status Last Admin Dose Admin Acetaminophen (TYLenol 325MG TAB) 650 mg Q4H PRN PO MILD PAIN (1-3) 12/17/24 23:30 01/16/25 23:29 Acetaminophen (TYLenol 325MG TAB) 650 mg Q6H PRN PO TEMPERATURE GREATER THAN 101.5 12/17/24 23:30 01/16/25 23:29 Dextrose (D50w) 50 ml AD PRN IV HYPOGLYCEMIA PROTOCOL 12/18/24 05:00 01/17/25 04:59 Dextrose/Sodium Chloride 1,000 ml @ 0 mls/hr AD IV 12/17/24 23:30 01/16/25 23:29 Famotidine (Pepcid 20mg Vial) 20 mg BID IV 12/18/24 09:00 01/17/25 08:59 12/18/24 08:04 20 MG Glucagon (Glucagon 1mg Kit) 1 mg AD PRN IM HYPOGLYCEMIA PROTOCOL 12/18/24 05:00 01/17/25 04:59 Insulin Glargine (LANtus 100 UNITS/ML 10 ML VIAL) 5 units BID@0730,2100 SQ 12/18/24 21:00 01/17/25 20:59 Insulin Human Regular (humuLIN R 100 UNIT/ML 3ML) INSULIN SLIDING SCAL... ACHS SQ 12/18/24 16:30 01/17/25 16:29 Insulin Human Regular 100 unit/ Sodium Chloride 101 ml @ 0 mls/hr PROTOCOL IV 12/17/24 23:30 01/16/25 23:29 12/17/24 23:43 8 MLS/HR Magnesium Sulfate 50 ml @ 0 mls/hr PROTOCOL IV 12/17/24 23:30 12/17/24 23:28 DC Magnesium Sulfate 50 ml @ 0 mls/hr PROTOCOL PRN IV OTHER [SEE ORDER COMMENTS] 12/17/24 23:30 01/16/25 23:29 12/18/24 08:04 25 MLS/HR Mannitol (Osmitrol 20% 250ml Bag) 41 gm AD IV 12/17/24 23:30 12/17/24 23:29 DC Ondansetron HCl (zoFRAN 4MG INJ) 4 mg Q6H PRN IV NAUSEA/VOMITING 12/17/24 23:30 01/16/25 23:29 Potassium Chloride 20 meq/ Sodium Chloride 1,010 ml @ 0 mls/hr PROTOCOL IV 12/17/24 23:30 01/16/25 23:29 12/18/24 00:11 150 MLS/HR Potassium Chloride/Dextrose/ Sod Cl 1,000 ml @ 0 mls/hr AD IV 12/17/24 23:30 01/16/25 23:29 12/18/24 09:16 150 MLS/HR Potassium Chloride 100 ml @ 100 mls/hr AD PRN IV POTASSIUM PROTOCOL 12/17/24 23:30 01/16/25 23:29 Potassium Chloride (K-Dur/Klor-Con 20meq) 20 meq AD PRN PO POTASSIUM PROTOCOL 12/17/24 23:30 01/16/25 23:29 12/18/24 06:58 20 MEQ Potassium Chloride (KCl 10% Elixir 20meq/15ml) 20 meq AD PRN PO POTASSIUM PROTOCOL 12/17/24 23:30 01/16/25 23:29 Prednisone (deltaSONE/ oraSONE 20MG TAB) 20 mg DAILY PO 12/19/24 09:00 01/18/25 08:59 UNV Sodium Chloride 1,000 ml @ 200 mls/hr PROTOCOL IV 12/17/24 23:30 01/16/25 23:29 DIAGNOSTICS / RADIOLOGY: [ ] ASSESSMENT: Hyperosmolar hyperglycemic state POA Uncontrolled diabetes POA Medical nonadherence POA Pseudohyponatremia due to hyperglycemia POA Possible dehydration POA Hypertension POA Ulcerative colitis POA Bullous rash POA POA PLAN: We will admit patient in ICU We will start on clear liquid diet Start on insulin drip, IV fluids and electrolyte replacement using DKA protocol We will start on Famotidine 20 mg IV bid for GI prophylaxis We will start on insulin sliding scale AC & HS with hypoglycemia protocol We will add prn medication for fever,pain,nausea, vomiting and constipation We will reconcile home meds once medlist available We will seek critical care consultation We will seek endocrinology consultation Counseled on strict compliance with medication We will request labs in am Further orders to follow depending on above results Continue home medication prednisone 20 mg to prevent adrenal crisis Follow up with lactic acid Plan to discontinue insulin IV and transition to subcutaneous insulin. We will follow critical Care recommendations. ATTESTATION BY PHYSICIAN I have seen and examined the patient. I reviewed the documentation, medical decision making, and treatment plan as noted by the resident provider above. I agree with the findings and plan of care. Ignacio Angulo MD, KEERTI K MD Dec 18, 2024 14:17
[2024-12-18] MEDS: INSULIN humuLIN R 100 UNIT/ML 3ML SQ SCH (16:40)
--- NOTE | 2024-12-18 17:54 | NUR ---
D/C PLAN CM spoke to patient regarding d/c planning. Patient lives with spouse. Reports he is independent with ADLs. Denies having any home services or DME. CM discussed diabetes management. Reports this is his first episode and is newly diagnosed. States he does not have glucometer. CM educated patient to notify physician at discharge that a prescription is needed for glucometer, lancets, and strips. Verbalized understanding. No other needs verbalized. CM to f/u. Addendum: 12/18/24 at 1757 by CARLOS FAGAN CM Amended: Links added.
[2024-12-18] MEDS: INSULIN GLARgine 100 UNITS/ML 10 ML VIAL SQ SCH (21:12)
[2024-12-19] VITALS (7 sets, daily range): BP systolic 121–132; BP diastolic 63–86; PULSE 67–85; RESP 13–26; TEMP 97.7–98.9; O2SAT 97–98
[2024-12-19] MEDS: DiphenhydrAMINE HCL 50 MG/ML VIAL IV ONE ×2 (02:53→10:43)
[2024-12-19 04:38] LABS: BASOPHILS # (AUTO) 0.06 K/uL (0.00-0.20); BASOPHILS % (AUTO) 0.8 % (0.0-5.0); EOSINOPHILS # (AUTO) 0.24 K/uL (0.00-0.70); EOSINOPHILS % (AUTO) 3.2 % (0.0-8.0); HEMATOCRIT 38.4 % (42-54); IMMATURE GRANULOCYTE ABSOLUTE 0.06 K/uL (0-1); LYMPHOCYTES # (AUTO) 1.5 K/uL (1.0-4.8); LYMPHOCYTES % (AUTO) 20.6 % (21.0-51.0); MEAN CORPUSCULAR HEMOGLOBIN 30.2 pg (27.0-33.0); MEAN CORPUSCULAR HGB CONC 33.1 g/dL (32.0-36.0); MEAN CORPUSCULAR VOLUME 91.2 fL (79-99); MONOCYTES # (AUTO) 0.6 K/uL (0.1-1.0); MONOCYTES % (AUTO) 7.4 % (3.0-13.0); NEUTROPHILS % (AUTO) 67.2 % (40.0-77.0); PLATELET COUNT (AUTO) 236 K/uL (130-400); RED BLOOD CELL COUNT(AUTO) 4.21 MIL/uL (4.50-6.20); RED CELL DISTRIBUTION WIDTH 13.9 % (11.0-15.5); WHITE BLOOD COUNT (AUTO) 7.4 K/uL (4.8-10.8)
[2024-12-19 04:54] LABS: CREATININE 0.7 mg/dL (0.5-1.3)
[2024-12-19] MEDS: predniSONE 20 MG TABLET PO SCH (09:00)
[2024-12-19] MEDS: DiphenhydrAMINE HCL 50 MG/ML VIAL IM ONE (10:43)
--- NOTE | 2024-12-19 13:05 | NUR ---
RECEIVED PATIENT FROM ICU ROOM 219. APPEARS COMFORTABLE. TELEMETRY PACK ON AND READING SR HR 76. PENDING TO BE SEEN BY DR. LEON TODAY.
--- NOTE | 2024-12-19 15:29 | PN ---
[facility] PROGRESS NOTE Date of Service: Dec 19, 2024 Time of Service: 15:29 SUBJECTIVE: This is a 69-year-old male with past medical history of hypertension, Medical noncompliance , Crohn's disease, ulcerative colitis, obesity, diabetes and bullous rash who presents to the ED for complaints of elevated blood sugar.Patient states he went to his PCP today and lab work was done and in the afternoon the clinic had been calling him for the result but his phone was on silence so a lot boss went to check on him and instructed him that his blood sugar is high and that the doctor wants him to go the ER,thus prompted this admission.Patient reports the only symptoms he felt is that he is weak,has dry mouth ,nauseated and has increased urinary frequency.Patient reports he has been taking Metformin 500mg po daily last dose taken was prior to ER arrival but per ER report he stopped taking his Metformin for a year now.Patient reports he is taking prednisone 20mg po daily for his ulcerative colitis and bullous rash. Seen and examined patient awake,alert and coherent.Patient denies chest pain,palpitation,cough ,vomiting,abdominal painand shortness of breath. Latest vital signs temperature 99, pulse 97, blood pressure 141/74 saturation 99% on room air. Labs: WBC 11, hemoglobin 14, hematocrit 42, platelet count 304. Sodium 126, chloride 90, CO2 25, BUN 24 creatinine 1.3, GFR 60 random glucose 729, ketones 0.4 troponin seven. ABG pH 7.4, CO2 35, PO2 75 bicarb 23 O2 saturation 95%. Urinalysis significant for glucosuria. Chest x-ray result is still pending at this time. ECG result revealed sinus rhythm heart rate 91 left axis deviation. While in the ER patient received insulin 8 units IV, Zofran 4 mg IV and one L NS bolus. We will admit patient to ICU for further medical management. 12/18/2024 - patient seen at bedside in room 219. Patient is alert, awake and oriented to time place person. Patient is asymptomatic, hemodynamically stable. Serum glucose is 155 , hemoglobin 10.5 we will plan to discontinue the IV insulin and transition to subcutaneous, hypoglycemia protocol has been already placed. Patient's labs were monitored closely, sodium 136, potassium 3.5, chloride 103, bicarb 28 . Informed the patient about importance of being adherent to the medication. We will monitor the patient closely 12/19/24: The patient was evaluated at the bedside and reported significant improvement, though he is now experiencing itching over the longstanding bullous rash affecting his chest, abdomen, and back. He attributes this rash to his ulcerative colitis. His current blood glucose level is 256 mg/dL. He is hemodynamically otherwise stable. Lab results were significant for a hemoglobin of 12.7 g/dL, a normalized anion gap of 7 mEq/L, corrected electrolyte imbalances, and a hemoglobin A1c of 10.5%, indicating an estimated average glucose around 255 mg/dL over the past 3 months. The patient is currently on Lantus, 5 units twice daily, with supplementary sliding-scale insulin four times daily. His insulin infusion has been discontinued, and further assessment and plans are outlined below. REVIEW OF SYSTEMS CONSTITUTIONAL: Denies fevers, chills, or night sweats. No unintentional weight loss reported. NEUROLOGICAL: Denies headache, amaurosis fugax, sensory deficit, vertigo/spinning sensation, gait abnormalities, or tremors. ENT: No hearing loss, otalgia, otorrhea, rhinitis, rhinorrhea, hoarseness, or sore throat. CARDIOVASCULAR: Denies any exertional angina, dyspnea on exertion, orthopnea, paroxysmal nocturnal dyspnea, palpitations, life-threatening arrhythmias, claudication. PULMONARY: Denies any shortness of breath, cough, phlegm/sputum, hemoptysis, pleuritic chest pain. SLEEP: Denies morning headaches, daytime somnolence or napping. Denies difficulty falling asleep, staying asleep, waking from sleep. Denies knowledge of snoring. GASTROINTESTINAL: Denies any type of dysphagia to either liquids or solids. Denies vomiting, pyrosis, early satiety, abdominal pain, diarrhea, constipation, or changes in stool consistency or caliber. Denies coffee-ground emesis, hematemesis, hematochezia, or melanotic stools. GENITOURINARY: Increased urine frequency Denies urgency, nocturia, hematuria or incontinence (Storage/Irritative symptoms.) Low urinary stream, straining to void, urinary intermittency or hesitancy, splitting of the voiding stream, terminal dribbling. ENDOCRINOLOGIC: Denies polyuria, polydipsia, polyphagia or heat/cold intolerances. HEMATOLOGIC: Denies thrombophilia/previous clots, or coagulopathy/bleeding disorders. ONCOLOGIC: Denies personal history of malignancy. DERMATOLOGIC: +Bullous rash over chest and abdomen PSYCHIATRIC: Denies any suicidal or homicidal ideation. Denies hallucinations. PHYSICAL EXAM GENERAL APPEARANCE: The patient is awake, alert, and oriented, in no acute cardiopulmonary distress. NEUROLOGICAL: Cranial nerves II-XII grossly intact. Motor is 5/5 in bilateral upper and lower extremities proximal to distal. No sensory deficits. HEENT: Face is symmetric. Pupils are equal and reactive. Extraocular movements are intact. NECK: Supple. No JVD. No thyromegaly. No submental, submandibular, pre- /postauricular, occipital or supraclavicular lymphadenopathy. CHEST: Normal chest expansion. No Telemetry. LUNGS: Absence of any rales, rhonchi or any wheezing. CARDIOVASCULAR: Regular. S1 and S2 normal. No appreciable rubs, murmurs or gallops. ABDOMEN: Soft, nontender, and nondistended. There is no rebound, voluntary guarding, or rigidity. : Deferred. No Krishnamurthy. EXTREMITIES: Non-edematous and not cyanotic. No clubbing. Good capillary refill. SKIN: Tense, itchy bullous rash on the trunk and limbs Vital Signs (last 8hr) Date Time Temp Pulse Resp B/P (MAP) Pulse Ox O2 Delivery O2 Flow Rate FiO2 12/19/24 11:16 98.1 74 18 127/70 98 12/19/24 07:42 98 Room Air* 0 21 12/19/24 07:36 97.7 69 15 132/86 97 Room Air LABS: Laboratory: Test 12/19/24 11:36 12/19/24 04:24 12/18/24 05:31 12/17/24 22:00 Range/Units Whole Blood Glucose 256 H 70-110 MG/DL White Blood Count 7.4 4.8-10.8 K/uL Red Blood Count 4.21 L 4.50-6.20 MIL/uL Hemoglobin 12.7 L 14.0-18.0 g/dL Hematocrit 38.4 L 42-54 % Mean Corpuscular Volume 91.2 79-99 fL Mean Corpuscular Hemoglobin 30.2 27.0-33.0 pg Mean Corpuscular Hemoglobin Concent 33.1 32.0-36.0 g/dL Red Cell Distribution Width 13.9 11.0-15.5 % Platelet Count 236 130-400 K/uL Mean Platelet Volume 10.4 7.5-10.5 fL Immature Granulocyte % (Auto) 0.8 0-1 % Neutrophils (%) (Auto) 67.2 40.0-77.0 % Lymphocytes (%) (Auto) 20.6 L 21.0-51.0 % Monocytes (%) (Auto) 7.4 3.0-13.0 % Eosinophils (%) (Auto) 3.2 0.0-8.0 % Basophils (%) (Auto) 0.8 0.0-5.0 % Neutrophils # (Auto) 5.0 1.8-7.7 K/uL Lymphocytes # (Auto) 1.5 1.0-4.8 K/uL Monocytes # (Auto) 0.6 0.1-1.0 K/uL Eosinophils # (Auto) 0.24 0.00-0.70 K/uL Basophils # (Auto) 0.06 0.00-0.20 K/uL Absolute Immature Granulocyte (auto 0.06 0-1 K/uL Nucleated Red Blood Cells 0.0 0.0-0.19 % Sodium Level 137 136-145 mmol/L Potassium Level 4.0 3.5-5.1 mmol/L Chloride Level 106 101-111 mmol/L Carbon Dioxide Level 24 21-32 mmol/L Blood Urea Nitrogen 7 7-18 mg/dL Creatinine 0.7 0.5-1.3 mg/dL Glomerular Filtration Rate Calc 100 >90 mL/min Random Glucose 197 H 70-105 mg/dL Total Calcium 8.0 L 8.5-10.1 mg/dL Magnesium Level 2.00 1.80-2.40 mg/dL Hemoglobin A1c 10.5 H 4.0-6.0 % Estimated Average Glucose (eAG) 255 H 70-126 mg/dL Total Bilirubin 0.5 0.2-1.0 mg/dL Aspartate Amino Transf (AST/SGOT) 13 10-37 U/L Alanine Aminotransferase (ALT/SGPT) 16 12-78 U/L Alkaline Phosphatase 91 50-136 U/L Total Protein 5.9 L 6.0-8.3 g/dL Albumin 2.7 L 3.5-5.0 g/dL Triglycerides Level 129 30-200 mg/dL Cholesterol Level 144 <200 mg/dL LDL Cholesterol 76 0-99 mg/dL HDL Cholesterol 57 29-71 mg/dL Thyroid Stimulating Hormone (TSH) 0.84 0.36-3.74 uIU/mL Urine Color COLORLESS YELLOW Urine Appearance CLEAR CLEAR Urine pH 5.0 5.0-8.0 Urine Specific [place] 1.032 H 1.001-1.031 Urine Protein NEGATIVE NEGATIVE mg/dL Urine Glucose (UA) >=1000 H NEGATIVE mg/dL Urine Ketones NEGATIVE NEGATIVE mg/dL Urine Occult Blood NEGATIVE NEGATIVE Urine Nitrate NEGATIVE NEGATIVE Urine Bilirubin NEGATIVE NEGATIVE mg/dL Urine Urobilinogen 0.2 0.2-1.0 mg/dL Urine Leukocyte Esterase NEGATIVE NEGATIVE Karan/uL Urine RBC None 0-1 /HPF Urine WBC 0-1 0-1 /HPF Urine Squamous Epithelial Cells RARE 0-2 /HPF Urine Bacteria RARE None Seen /HPF Test 12/17/24 21:31 12/17/24 21:27 12/17/24 20:47 Range/Units Whole Blood Ketones Quantitative 0.4 0.0-0.6 mmol/L Total Creatine Kinase 38 21-232 U/L Troponin I High Sensitivity 7 4-75 ng/L Blood Gas Specimen Type Arterial Arterial Blood pH 7.442 7.350-7.450 Arterial Blood Partial Pressure CO2 35 35-48 mmHg Arterial Blood Partial Pressure O2 75.3 L 83.0-108.0 mmHg Arterial Blood HCO3 23.3 21.0-28.0 mmol/L Arterial Blood Oxygen Saturation 95.7 94.0-98.0 % Arterial Blood Base Excess -0.2 -2.0-3.0 mmol/L Blood Gas Temperature 37.0 35.5-37.0 CELSIUS Blood Gas Vent Mode RA ROOM AIR FiO2 21.0 % Blood Gas Specimen Comment RR RN Bedside Glucose Comment Notified Nurse Current Medications Medications (Trade) Dose Ordered Sig/Krystal Route PRN Reason Start Time Stop Time Status Last Admin Dose Admin Acetaminophen (TYLenol 325MG TAB) 650 mg Q4H PRN PO MILD PAIN (1-3) 12/17/24 23:30 01/16/25 23:29 Acetaminophen (TYLenol 325MG TAB) 650 mg Q6H PRN PO TEMPERATURE GREATER THAN 101.5 12/17/24 23:30 01/16/25 23:29 Dextrose (D50w) 50 ml AD PRN IV HYPOGLYCEMIA PROTOCOL 12/18/24 05:00 01/17/25 04:59 Dextrose/Sodium Chloride 1,000 ml @ 0 mls/hr AD IV 12/17/24 23:30 01/16/25 23:29 Famotidine (Pepcid 20mg Vial) 20 mg BID IV 12/18/24 09:00 01/17/25 08:59 12/19/24 08:20 20 MG Glucagon (Glucagon 1mg Kit) 1 mg AD PRN IM HYPOGLYCEMIA PROTOCOL 12/18/24 05:00 01/17/25 04:59 Insulin Glargine (LANtus 100 UNITS/ML 10 ML VIAL) 5 units BID@0730,2100 SQ 12/18/24 21:00 12/19/24 14:36 DC 12/19/24 08:21 5 UNITS Insulin Glargine (LANtus 100 UNITS/ML 10 ML VIAL) 10 units BID@0730,2100 SQ 12/19/24 21:00 01/18/25 20:59 Insulin Human Isoph/Insulin Regular (humuLIN 70-30 VIAL) 5 unit TID SQ 12/19/24 21:00 01/18/25 20:59 Insulin Human Regular (humuLIN R 100 UNIT/ML 3ML) INSULIN SLIDING SCAL... ACHS SQ 12/18/24 16:30 01/17/25 16:29 12/19/24 11:57 5 UNIT Insulin Human Regular 100 unit/ Sodium Chloride 101 ml @ 0 mls/hr PROTOCOL IV 12/17/24 23:30 01/16/25 23:29 12/17/24 23:43 8 MLS/HR Magnesium Sulfate 50 ml @ 0 mls/hr PROTOCOL IV 12/17/24 23:30 12/17/24 23:28 DC Magnesium Sulfate 50 ml @ 0 mls/hr PROTOCOL PRN IV OTHER [SEE ORDER COMMENTS] 12/17/24 23:30 01/16/25 23:29 12/18/24 08:04 25 MLS/HR Mannitol (Osmitrol 20% 250ml Bag) 41 gm AD IV 12/17/24 23:30 12/17/24 23:29 DC Ondansetron HCl (zoFRAN 4MG INJ) 4 mg Q6H PRN IV NAUSEA/VOMITING 12/17/24 23:30 01/16/25 23:29 Potassium Chloride 20 meq/ Sodium Chloride 1,010 ml @ 0 mls/hr PROTOCOL IV 12/17/24 23:30 01/16/25 23:29 12/18/24 00:11 150 MLS/HR Potassium Chloride/Dextrose/ Sod Cl 1,000 ml @ 0 mls/hr AD IV 12/17/24 23:30 01/16/25 23:29 12/18/24 09:16 150 MLS/HR Potassium Chloride 100 ml @ 100 mls/hr AD PRN IV POTASSIUM PROTOCOL 12/17/24 23:30 01/16/25 23:29 Potassium Chloride (K-Dur/Klor-Con 20meq) 20 meq AD PRN PO POTASSIUM PROTOCOL 12/17/24 23:30 01/16/25 23:29 12/18/24 16:39 20 MEQ Potassium Chloride (KCl 10% Elixir 20meq/15ml) 20 meq AD PRN PO POTASSIUM PROTOCOL 12/17/24 23:30 01/16/25 23:29 Prednisone (deltaSONE/ oraSONE 20MG TAB) 20 mg DAILY PO 12/19/24 09:00 01/18/25 08:59 Sodium Chloride 1,000 ml @ 200 mls/hr PROTOCOL IV 12/17/24 23:30 01/16/25 23:29 DIAGNOSTICS / RADIOLOGY: [place] [address] IMAGING REPORT Signed PATIENT: SOLANGE CHAKRABORTY MR#: [id number] : 1955 SEX: M AGE: 69 LOCATION: [facility] ORDER 00 STATUS: ADM IN REPORT#: [id number] SERVICE 58 REASON: weakness ORDERING PHYSICIAN: ADRY GE PROCEDURE: CXR1VW - CHEST 1VW EXAM: CR Chest, 1 view CLINICAL HISTORY: Weakness. COMPARISON: None provided. FINDINGS: Nodular opacities in the left mid to lower zones, measuring about 0.6 cm and 2.2 cm. The remaining lung burci[place] are clear. No pleural effusion or pneumothorax. The cardiomediastinal silhouette is within normal limits. No acute osseous abnormality. IMPRESSION: Nodular opacities in the left mid to lower zones, measuring about 0.6 cm and 2.2 cm. The remaining lung burciaga are clear. /[place] DICTATED BY: CAM GUY Jr., MD DATE: 12/18/24318 ELECTRONICALLY SIGNED BY: CAM GUY Jr., MD DATE: 12/18/24318 ASSESSMENT: Hyperosmolar hyperglycemic state POA Uncontrolled diabetes, hemoglobin A1C 10.5 POA Medical nonadherence POA electrolyte abnormalities likely secondary to Hyperosmolar Hyperglycemic State Pseudohyponatremia due to hyperglycemia POA Possible dehydration POA Hypertension POA Ulcerative colitis POA Bullous rash likely a manifestation of ulcerative colitis POA PLAN: [facility]. Hyperosmolar hyperglycemic state POA Uncontrolled diabetes, hemoglobin A1C 10.5 POA * Recent blood sugar level at 11:36 is 256, anion gap of 7 * Under the guidance of the sunglass clip attacher, adjustments were made to the patient's insulin regimen. The Lantus dose was increased to 10 units twice daily, and Humulin R was initiated at 5 units before each meal. * Continue with sliding scale insulin QID * Hypoglycemia protocol * The sunglass clip attacher is scheduled to conduct a consult tomorrow morning. Pending the recommendations from this consultation, the patient may be c onsidered for discharge after that. Electrolyte abnormalities likely secondary to Hyperosmolar Hyperglycemic State Pseudohyponatremia due to hyperglycemia POA * Electrolyte abnormalities have been corrected with current Na 137, K 4, CL 106 * Replace electrolytes per protocol Ulcerative colitis POA Bullous rash likely a manifestation of ulcerative colitis POA * We restarted with Prednisone 20 mg to prevent adrenal crisis. However,the blood sugar spiked to 256 from 175 after restarting it. Insulin adjustments have made as per above. * Start with Benadryl 25 mg IV Q12 for pruritus. GI Prophylaxis: Continue with Famotidine 20 mg IV bid for GI prophylaxis DVT Prophylaxis: Heparin 38616 IU BID PRN medication for nausea, and vomiting AM Labs: CBC, BMP Possible discharge tomorrow after sunglass clip attacher recommendations for uncontrolled type 2 DM in the setting of chronic steroid use. Further orders to follow depending on above results ATTESTATION BY PHYSICIAN I have seen and examined the patient. I reviewed the documentation, medical decision making, and treatment plan as noted by the resident provider above. I agree with the findings and plan of care. Ignacio Angulo MD, MANALI MD Dec 19, 2024 15:29
--- NOTE | 2024-12-19 17:33 | PN ---
[facility] PROGRESS NOTE Date Patient Seen: Dec 19, 2024 Time of Visit: 17:32 Supervising Physician: Dr. Moffett Primary Care Physician: Dr.Minor Salguero Outpatient Specialists: [ ] Inpatient Consults: [ ] PROBLEM LIST: 1. Hyperosmolar hyperglycemic state, POA 2. Diabetes type 2 uncontrolled, POA 3. Pseudohyponatremia, POA 4. Morbid obesity, POA 5. Crohn's disease/ulcerative colitis on chronic steroid INTERVAL HISTORY: 12/18/2024: At the time of my evaluation, the patient is lying in bed. He remains on room air with optimal oxygen saturation, vital signs are generally stable. Laboratory data today was unremarkable and blood glucose trends have significantly improved. No new chest imaging for review today. Currently, the patient remains on a insulin drip and is also on IV fluids with D5 NS and added K. No other complaint. 12/19/2024: At the time of my evaluation, the patient was lying in bed. The staff nurse reports no acute event overnight. Vital signs today are u nremarkable and the patient is on room air. Laboratory data today was notable for improved blood glucose trend. No chest imaging for review today. No other complaint. REVIEW OF SYSTEMS: 12 point ROS reviewed with patient. Pertinent positives mentioned above. Otherwise negative. PHYSICAL EXAM: GENERAL: Alert, weak, awake oriented x 3 HEENT: EOMI, Sclera non icteric, moist mucosa NECK: Supple, no JVD, trachea midline LUNGS: Clear breath sounds bilaterally. No wheezes HEART: Regular rate and rhythm. Normal S1 and S2, without murmurs ABD: Abdomen soft, nontender. Bowel sounds present EXT: No clubbing cyanosis or edema NEURO: Alert and oriented to person, follows commands Vital Signs (last 8hr) Date Time Temp Pulse Resp B/P (MAP) Pulse Ox O2 Delivery O2 Flow Rate FiO2 12/19/24 11:16 98.1 74 18 127/70 98 LABS: Hematology Labs: Test 12/19/24 04:24 Range/Units White Blood Count 7.4 4.8-10.8 K/uL Red Blood Count 4.21 L 4.50-6.20 MIL/uL Hemoglobin 12.7 L 14.0-18.0 g/dL Hematocrit 38.4 L 42-54 % Mean Corpuscular Volume 91.2 79-99 fL Mean Corpuscular Hemoglobin 30.2 27.0-33.0 pg Mean Corpuscular Hemoglobin Concent 33.1 32.0-36.0 g/dL Red Cell Distribution Width 13.9 11.0-15.5 % Platelet Count 236 130-400 K/uL Mean Platelet Volume 10.4 7.5-10.5 fL Immature Granulocyte % (Auto) 0.8 0-1 % Neutrophils (%) (Auto) 67.2 40.0-77.0 % Lymphocytes (%) (Auto) 20.6 L 21.0-51.0 % Monocytes (%) (Auto) 7.4 3.0-13.0 % Eosinophils (%) (Auto) 3.2 0.0-8.0 % Basophils (%) (Auto) 0.8 0.0-5.0 % Neutrophils # (Auto) 5.0 1.8-7.7 K/uL Lymphocytes # (Auto) 1.5 1.0-4.8 K/uL Monocytes # (Auto) 0.6 0.1-1.0 K/uL Eosinophils # (Auto) 0.24 0.00-0.70 K/uL Basophils # (Auto) 0.06 0.00-0.20 K/uL Absolute Immature Granulocyte (auto 0.06 0-1 K/uL Nucleated Red Blood Cells 0.0 0.0-0.19 % Chemistry Labs: Test 12/19/24 16:07 12/19/24 04:24 12/18/24 05:31 12/17/24 21:31 Range/Units Whole Blood Glucose 250 H 70-110 MG/DL Sodium Level 137 136-145 mmol/L Potassium Level 4.0 3.5-5.1 mmol/L Chloride Level 106 101-111 mmol/L Carbon Dioxide Level 24 21-32 mmol/L Blood Urea Nitrogen 7 7-18 mg/dL Creatinine 0.7 0.5-1.3 mg/dL Glomerular Filtration Rate Calc 100 >90 mL/min Random Glucose 197 H 70-105 mg/dL Total Calcium 8.0 L 8.5-10.1 mg/dL Magnesium Level 2.00 1.80-2.40 mg/dL Hemoglobin A1c 10.5 H 4.0-6.0 % Estimated Average Glucose (eAG) 255 H 70-126 mg/dL Total Bilirubin 0.5 0.2-1.0 mg/dL Aspartate Amino Transf (AST/SGOT) 13 10-37 U/L Alanine Aminotransferase (ALT/SGPT) 16 12-78 U/L Alkaline Phosphatase 91 50-136 U/L Total Protein 5.9 L 6.0-8.3 g/dL Albumin 2.7 L 3.5-5.0 g/dL Triglycerides Level 129 30-200 mg/dL Cholesterol Level 144 <200 mg/dL LDL Cholesterol 76 0-99 mg/dL HDL Cholesterol 57 29-71 mg/dL Thyroid Stimulating Hormone (TSH) 0.84 0.36-3.74 uIU/mL Whole Blood Ketones Quantitative 0.4 0.0-0.6 mmol/L Total Creatine Kinase 38 21-232 U/L Troponin I High Sensitivity 7 4-75 ng/L Test 12/17/24 20:47 Range/Units Bedside Glucose Comment Notified Nurse DIAGNOSTICS / RADIOLOGY RESULTS: [ ] PLAN 12/18/2024: For now, we are going to continue current management for the patient. I am going to discontinue the insulin drip, start the patient on Lantus5 units q.12 as well as insulin sliding scale. The patient will remain on IV fluids only with NS. We will continue to follow the blood glucose trend. We will replace electrolyte deficit as necessary. I discussed the findings and plan for further management with the patient. We will monitor the patient's progress and response to management. We will continue to provide general sup portive care, GI and DVT prophylaxis. Further orders per attending MD and hospital course. 12/19/2024: For now, we are going to continue current management for the patient. He is off insulin drip and on insulin sliding scale as well long- acting insulin therapy with Lantus. Blood glucose trend has significantly improved. I believe the patient is stable enough and can transfer out of the ICU. Considering the patient does not require any further critical care interventions and respiratory ham has maintained stable, we are going to proceed to sign off the case and we will remain available if further needs may arise. Thank you for allowing us to participate in patient care. NEURO: Minimize central acting medications as possible. Maintain fall precautions, adequate lighting during the day PULMONARY: Supplemental 02 as needed. Maintain aspiration precautions at all times CARDIOVASCULAR: Follow hemodynamics. Vital signs per facility protocol GI & NUTRITION: Continue with nutritional support. Continue stool softeners and laxatives as needed. KIDNEYS & ELECTROLYTES: Strict monitoring of intake, output and overall fluid balance. Avoid nephrotoxic medications to the extent possible. Medications to be dosed according to renal function. Monitor electrolytes and replace as needed ENDOCRINE: Maintain blood glucose between 100-180 at all times. Hypoglycemia protocol in place INFECTIOUS DISEASE: Trend temperature, WBC and procalcitonin level Follow cultures, deescalate antibiotics as soon as possible. Panculture if new onset fever ONCOLOGY/HEMATOLOGY/COAGULATION: Monitor for s/s of bleeding Monitor hemoglobin, coagulation studies as needed SKIN: Pressure ulcer prevention per facility protocol Specialty mattress ORTHO/REHAB: Continue PT/OT Prophylaxis: Continue GI and DVT prophylaxis Code Status: Full Resuscitation Disposition: TBD Other: Patient was seen and case discussed with annabella BAIRD. Plan of care was discussed and agreed upon. AIYANA VASQUEZ NP Dec 19, 2024 17:33
--- NOTE | 2024-12-19 19:06 | NUR ---
PAGED PHYSICIAN FINE CRAFT ARTIST ...PATIENT WANTS TO LEAVE AM. HIS DOES NOT HAVE A RIDE AND HIS 2 YEAR OLD SON IS CRYING LOUDLY. HE SAID HE WILL SEEK MEDICAL CARE TOMORROW AT HIS PCP'S OFFICE.
--- NOTE | 2024-12-19 19:21 | NUR ---
SPOKE WITH ERENDIRA ALFRED NP AND NOTIFIED HER OF PATIENT LEAVING AMA. ALSO NOTIFIED WINDOWS APPLICATION ADMINISTRATOR, PAYTON WADE RN.
[2024-12-19] MEDS ORDERED: HEParin 5,000 UNIT VIAL SQ SCH (20:00)
[2024-12-19] MEDS ORDERED: DiphenhydrAMINE HCL 50 MG/ML VIAL IV PRN (20:00)
[2024-12-19] MEDS ORDERED: INSULIN GLARgine 100 UNITS/ML 10 ML VIAL SQ SCH (21:00)
--- NOTE | 2024-12-22 09:50 | NUR ---
Transitional Phone Call Spoke to patient, states "doing the same. Feeling better." States has insulin and "is working on it." [facility] has an appointment with PCP - Dr. Jose M Baird tomorrow 12/23/2024; requests lab work for appointment, referred to medical records, transferred. No further questions or concerns at this time.
== END 2024-12-19 19:15 | disposition left against medical advice (07) | DRG 638 ==
LOC: EDH 20:44 → EDHIP 23:12 → 2CH 12-18 03:09 → 2DH 12-19 13:05
PROVIDERS: ADMIT Internal Medicine; ATTEND Internal Medicine
DX: E11.00 Type 2 diabetes mellitus with hyperosmolarity without nonketotic hyperglycemic-hyperosmolar coma (NKHHC) (principal); K50.90 Crohn's disease, unspecified, without complications; E66.01 Morbid (severe) obesity due to excess calories; E86.0 Dehydration; Z68.29 Body mass index [BMI] 29.0-29.9, adult; I10 Essential (primary) hypertension; Z79.4 Long term (current) use of insulin; Z79.84 Long term (current) use of oral hypoglycemic drugs; Z91.148 Patient's other noncompliance with medication regimen for other reason; Z82.49 Family history of ischemic heart disease and other diseases of the circulatory system; Z79.52 Long term (current) use of systemic steroids; Z79.899 Other long term (current) drug therapy
CPT/HCPCS: 36415; 36600; 71045; 80048; 80053; 80061; 81001; 82010; 82550; 82803; 82948; 83036; 83735; 84443; 84484; 85025; 93005; 96374; 99285; G0378; J1200; J1815; J2405; J3475; J3480; J3490